=== PATIENT | female | born 1970 | race Caucasian/White ===

== ENCOUNTER 2019-07-31 21:31 | Emergency (ER) | payer OTHER, SELFPAY ==
--- NOTE | ~2019-07-31 | CT_ITS ---
EXAMINATION: CT brain wo con INDICATION: Headache COMPARISON: 02/28/2019 TECHNIQUE: Standard unenhanced head CT. The dose-length product (DLP) was 605.33 mGy-cm. The mA was a djusted according to patient size. Iterative reconstruction technique was employed. FINDINGS: There is no intracranial hemorrhage, acute infarction, or abnormal mass lesion. The ventric les are normal. There is no abnormal mass effect or midline shift. The linder-white matter differentiat ion is normal. The basal cisterns are patent. The orbits are normal. The paranasal sinuses, mastoids and calvarium are normal. IMPRESSION: 1. No acute intracranial abnormality. Reviewed, dictated and finalized at location A.
[2019-07-31 21:33] VITALS: BP 177/113; PULSE 67; RESP 20; TEMP 36.9; O2SAT 100
[2019-07-31 21:50] VITALS: BP 178/118; PULSE 57; RESP 18; TEMP 36.8; O2SAT 100
[2019-07-31 22:38] VITALS: BP 192/117
[2019-07-31 22:47] VITALS: BP 174/111
--- NOTE | 2019-07-31 23:10 | PC.NURSE ---
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 EDP aware of pt BPs. EDP made aware of her concerns as well
[2019-07-31 23:15] VITALS: BP 223/140
[2019-07-31] MEDS: MORPHINE SULFATE 4 MG/ML INJ IV PUSH (23:33)
--- NOTE | 2019-07-31 23:37 | ED.GENADULT ---
HPI - General Adult General Chief complaint: Eye Problems Stated complaint: HIGH BLOOD PRESSURE Time Seen by Provider: 07/31/19 21:45 History of Present Illness HPI narrative: Patient is a 49-year-old female who presents the ER with complaints of headache as well as visual changes. Reports headache is been building up on the right side. Intermittent last couple of days. Denies previous history of headaches. She is very concerned she might have a tumor there as she has history of breast cancer and her cancer antigen markers have been increasing recently. She is due for repeat antigen testing and a PET scan in the near future. But increased her concern this evening is that she noticed that if she was looking upward that the top part of her vision was abnormal on her right eye. She has no eye pain or new flashers or floaters. She reports chronic floaters that she is not concerned about. She has no pain in her eye. Denies pain in her eyelids. Related Data Home Medications Medication Instructions Recorded Confirmed alprazolam 0.25 mg tablet 0.25 mg PO BID 02/16/19 biotin 1 mg capsule 1 mg PO DAILY 02/16/19 qeqebxabkg-ihzgswk-ohzseuwn 50 1 cap PO Q4H PRN 02/16/19 mg-325 mg-40 mg capsule carvedilol 12.5 mg tablet 12.5 mg PO Q12H 02/16/19 cyclobenzaprine 10 mg tablet 10 mg PO .hs tablet 02/16/19 dicyclomine 10 mg capsule 10 mg PO TID 02/16/19 exemestane 25 mg tablet 25 mg PO DAILY 02/16/19 meclizine 25 mg tablet 25 mg PO TID 02/16/19 rivaroxaban 20 mg tablet 20 mg PO DAILY 02/16/19 rivaroxaban [Xarelto] mg 07/31/19 Allergies Allergy/AdvReac Type Severity Reaction Status Date / Time azithromycin Allergy Unknown Unknown Verified 07/31/19 21:46 latex Allergy Unknown Unknown Verified 07/31/19 21:46 nickel Allergy Unknown Unknown Verified 07/31/19 21:46 NEOPRENE Allergy Mild BLACKEN Uncoded 07/31/19 21:46 SKIN Review of Systems Review of Systems: All systems reviewed & are unremarkable except as noted in HPI and below Constitutional: Constitutional: Denies chills, Denies fever(s) and Denies weakness Eyes: Eyes: Reports no additional eye complaints and Reports change in vision ENT: Denies nasal congestion and Denies sore throat Cardiovascular: Cardiovascular: Denies chest pain Gastrointestinal: Gastrointestinal: Denies nausea and Denies vomiting Neurologic: Reports headache(s), Denies numbness and Denies weakness PMFSH Social History Social History Smoking packs per day: 0.5 Smoking cigarettes per day: 10.0 Smoking status: Current every day smoker Second hand tobacco smoke exposure: No Alcohol intake: current Gender identity (if verbalized by the patient): Female Exam Narrative: Exam Narrative: GENERAL: Well-appearing, well-nourished, and in no acute distress. HEAD: Normocephalic, atraumatic. EYES: PERRL and EOMI. Right upper lid is edematous and irritated. Eyelid eversion performed and there is no evidence of hordelum/stye. ENT: Mucous membranes moist. CHEST: Clear to auscultation. No respiratory distress. HEART: Regular rate and rhythm. Normal peripheral pulses. ABDOMEN: Soft, nontender, nondistended. EXTREMITIES: Normal range of motion. No edema. SKIN: Warm, dry, no rash. NEURO: Alert and oriented x3. Course Course Emergency Course: Patient has been very anxious in the ER. She received Ativan which seems to help this a lot. Headache is resolved. Informed of CT results. Discharge home. Vital Signs Vital signs: Vital Signs Temperature 98.4 F 07/31/19 21:33 Pulse Rate 67 07/31/19 21:33 Respiratory Rate 20 07/31/19 21:33 Blood Pressure 177/113 H 07/31/19 21:33 Pulse Oximetry 100 07/31/19 21:33 Temperature 98.2 F 07/31/19 21:50 Pulse Rate 64 08/01/19 01:34 Respiratory Rate 19 08/01/19 01:34 Blood Pressure 172/97 H 08/01/19 01:34 Pulse Oximetry 100 08/01/19 00:48 Medical Decision
[2019-07-31 23:44] VITALS: BP 254/143
--- NOTE | 2019-08-01 00:08 | PC.NURSE ---
When flushing to give ativan, pt reported pain. Some redness in IV site noted. Likely infiltrated. Second RN, confirmed this and is starting another IV. EDP made aware of this.
[2019-08-01] MEDS: LORAZEPAM INJ 2 MG/ML VIAL 1 MG IV PUSH (00:30)
[2019-08-01 00:33] VITALS: BP 194/108; PULSE 60; RESP 23; O2SAT 100
[2019-08-01 00:48] VITALS: BP 193/104; PULSE 64; RESP 16; O2SAT 100
[2019-08-01 01:12] VITALS: BP 175/111
[2019-08-01 01:34] VITALS: BP 172/97; PULSE 64; RESP 19
[2019-08-01 01:46] VITALS: BP 168/106; PULSE 64; RESP 20; O2SAT 99
== END 2019-08-01 02:05 | disposition home or self-care (01) ==
PROVIDERS: Emergency Provider Emergency Medicine; PCP Internal Medicine
DX: R51 Headache (principal); H02.9 Unspecified disorder of eyelid; F17.210 Nicotine dependence, cigarettes, uncomplicated
CPT/HCPCS: 70450; 96374; 99284; J2060; J2270

== ENCOUNTER 2019-08-18 15:02 | Outpatient (CLI) | payer OTHER, SELFPAY ==
--- NOTE | ~2019-08-18 | XR_ITS ---
EXAMINATION: XR elbow LT min 3V EXAM DATE: 08/18/2019 15:44 INDICATION: No known recent injury provided at this time. Pain of the left elbow. Posterior bone. TECHNIQUE: Left elbow frontal, lateral with flexion, and oblique projections obtained and reviewed. There is no prior study for comparison. FINDINGS: Left elbow anterior humeral line intact. There are no acute fractures or dislocations oh ntified. There is no subcutaneous gas. The soft tissue is unremarkable. There are no radiopaque f oreign bodies. The olecranon is unremarkable. IMPRESSION: 1. Unremarkable left elbow exam. Reviewed, dictated and finalized at location A.
== END 2019-08-18 15:03 | disposition home or self-care (01) ==
PROVIDERS: PCP Internal Medicine; Visit Provider Physician Assistant
DX: M25.522 Pain in left elbow (principal)
CPT/HCPCS: 73080

== ENCOUNTER 2019-11-16 14:19 | Outpatient (CLI) | payer OTHER, SELFPAY ==
--- NOTE | ~2019-11-16 | US_ITS ---
EXAMINATION: US carotid duplex BI DATE: 11/16/2019 14:53 INDICATION: Transient cerebral ischemic attack, unspecified. TECHNIQUE: Grayscale, color Doppler, and pulsed Doppler images of the cervical carotid arteries were obtained. The degree of vessel stenosis is placed in one of the following categories: normal, <50%, 5 0-69%, >=70% but less than near-occlusion, near-occlusion, or total occlusion. Note that percent sten osis relative to normal distal artery lumen diameter is indirectly measured from velocity measurement s as described by Artemio, et al. Radiology 2003; 229:340-346. COMPARISON: None. FINDINGS: RIGHT: The right common carotid artery (CCA) peak systolic velocity (PSV) is 67 cm/s. The right internal car otid artery (ICA) PSV is 56 cm/s. The right ICA end-diastolic velocity (EDV) is 21 cm/s. The right IC A/CCA PSV ratio is 0.8. Grayscale and color Doppler images yield an estimate of <50% diameter reducti on from plaque in the ICA. There is antegrade flow in the right vertebral artery. LEFT: The left CCA PSV is 65 cm/s. The left ICA PSV is 65 cm/s. The left ICA EDV is 32 cm/s. The left ICA/C CA PSV ratio is 1.0. Grayscale and color Doppler images yield an estimate of <50% diameter reduction from plaque in the ICA. There is antegrade flow in the left vertebral artery. IMPRESSION: 1. <50% stenosis in the right internal carotid artery. 2. <50% stenosis in the left internal carotid artery. Reviewed, dictated and finalized at location A.
== END 2019-11-16 14:20 | disposition home or self-care (01) ==
PROVIDERS: PCP Internal Medicine; Visit Provider Physician Assistant
DX: I65.23 Occlusion and stenosis of bilateral carotid arteries (principal)
CPT/HCPCS: 93880

== ENCOUNTER 2019-12-25 18:18 | Emergency (ER) | payer OTHER, SELFPAY ==
[2019-12-25 18:33] VITALS: BP 145/95; PULSE 62; RESP 20; TEMP 36.2; O2SAT 100
--- NOTE | 2019-12-25 18:37 | ECG_ITS ---
Measurements Intervals [place] Rate: 53 P: 40 [place]: 172 QRS: 12 QRSD: 98 T: 70 QT: 453 QTc: 428 Interpretive Statements SINUS BRADYCARDIA BORDERLINE ECG Electronically Signed On 12-26-2019 7:02:11 CDT by Roger Wang D.O.
[2019-12-25 18:54] LABS: Basophils Absolute Auto 0.1 K/mm3 (0.0-0.1); Basophils Percent Auto 0.5 % (0.2-1.2); Eosinophils Absolute Auto 0.3 K/mm3 (0-0.3); Eosinophils Percent Auto 2.7 % (0-4.4); Hematocrit 36.2 % (37.0-47.0); Hemoglobin 11.7 g/dL (12.0-15.0); Immature Granulocyte Absolute 0.04 K/mm3 (0.00-0.031); Immature Granulocyte Percent A 0.4 % (0-0.5); Lymphocytes Absolute Auto 4.59 K/mm3 (0.9-3.2); Lymphocytes Percent Auto 40.3 % (18.3-44.2); Mean Corpuscular HGB Conc 32.3 g/dl (32-36); Mean Corpuscular Hemoglobin 29.4 pg (26-34); Mean Platelet Volume 11.6 fl (7.4-10.4); Monocytes Absolute Auto 0.7 K/mm3 (0.1-0.6); Monocytes Percent Auto 5.9 % (2.6-8.5); Neutrophils Absolute Auto 5.7 K/mm3 (1.3-6.7); Neutrophils Percent Auto 50.2 % (45.5-73.1); Platelet Count Result 257 k/mm3 (150-375); Red Blood Count 3.98 M/mm3 (4.2-5.4); Red Cell Distribution Width 13.6 % (11.5-14.5); White Blood Count 11.4 K/mm3 (4.5-10.0)
[2019-12-25 19:02] VITALS: PULSE 61
[2019-12-25 19:04] LABS: Alanine Aminotransferase 17 U/L (4-35); Albumin Level 4.2 g/dL (3.5-5.1); Alkaline Phosphatase 103 U/L (38-126); Anion Gap 9 mmol/L (8-16); Aspartate Amino Transferase 19 U/L (14-36); Bilirubin,Total 0.3 mg/dL (0.2-1.3); Blood Urea Nitrogen 18 mg/dL (7-17); Calcium 9.3 mg/dL (8.4-10.2); Carbon Dioxide 25 mmol/L (22-30); Chloride 110 mmol/L (98-107); Estimated Glomerular Filt Rate > 60; Glucose 92 mg/dL (65-105); Potassium 3.6 mmol/L (3.4-5.0); Sodium 144 mmol/L (137-145)
--- NOTE | 2019-12-25 19:24 | ED.GENADULT ---
HPI - General Adult General Chief complaint: Unspecified Stated complaint: blood pressure issues Time Seen by Provider: 12/25/19 19:24 History of Present Illness HPI narrative: 49 yo female presents from home for low blood pressure. She reports that she was at home when she developed a strnge feeling in her head like she is high on morphine she also said that she had a funny feeling in her chest. She checked her blood pressure and it was in the 90s systolic. She reports that she had a previous TIA due to low blood pressure and they told her not to let her systolic BP get below 120. Since arriving here her blood systolic BPO has not gotten below 125. Related Data Home Medications Medication Instructions Recorded Confirmed carvedilol 12.5 mg tablet 12.5 mg PO DAILY tablet 08/18/19 12/13/19 biotin 1 mg capsule 1 mg PO DAILY 10/04/19 12/13/19 cyclobenzaprine 10 mg tablet 10 mg PO .hs tablet 10/04/19 12/13/19 dicyclomine 10 mg capsule 10 mg PO TID 10/04/19 11/11/19 meloxicam 15 mg tablet 15 mg PO DAILY 10/04/19 12/13/19 Allergies Allergy/AdvReac Type Severity Reaction Status Date / Time azithromycin Allergy Unknown stomach Verified 12/13/19 15:52 pain latex Allergy Unknown blisters Verified 12/13/19 15:52 nickel Allergy Unknown Turns skin Verified 12/13/19 15:52 Green NEOPRENE Allergy Mild BLACKEN Uncoded 12/13/19 15:52 SKIN Review of Systems Review of Systems: All systems reviewed & are unremarkable except as noted in HPI and below Constitutional: Constitutional: Denies fever(s) Eyes: Eyes: Denies loss of vision Cardiovascular: Cardiovascular: Denies chest pain Respiratory: Respiratory: Denies dyspnea Gastrointestinal: Gastrointestinal: Reports nausea Musculoskeletal: Musculoskeletal: Denies back pain Neurologic: Reports dizziness, Denies syncope, Denies headache(s), Denies focal weakness and Denies weakness [facility] Past Medical History Medical History (Updated 12/26/19 @ 00:00 by Background Daemon) Anemia Anxiety Arthritis Back pain Bilateral renal cysts Breast cancer, right Bronchitis Depression Dizziness Ear infection GERD (gastroesophageal reflux disease) Hiatal hernia High cholesterol History of blood transfusion History of chemotherapy History of sinus problem HTN (hypertension) Hx of radiation therapy Hyperlipidemia IBS (irritable bowel syndrome) Peptic ulcer Pleurisy Pulmonary embolism Shingles Vasovagal episode Vertigo Vision abnormalities Wears glasses for reading Surgical History Surgical History H/O abdominoplasty H/O bilateral mastectomy H/O right knee surgery per patient, had remodeled H/O tubal ligation H/O: hysterectomy History of ankle surgery left ankle reconstruction History of appendectomy History of carpal tunnel repair History of rhinoplasty History of tonsillectomy Hx of cholecystectomy Previous back surgery T10 filled with concrete Family History Family History Father Hypertension Mother Cerebrovascular accident Patient's mother is Other Arthritis Social History Social History Smoking packs per day: 0.5 Smoking cigarettes per day: 10.0 Years smoked: 35 Smoking pack-years: 17.50 Smoking status: Former smoker Second hand tobacco smoke exposure: No Smoking end date: 11/08/19 Alcohol intake: current Substance use: current Substance use type: marijuana Gender identity (if verbalized by the patient): Female Exam Const: General: healthy appearing, no acute distress and alert Orientation/consciousness: patient oriented x3 HENMT: Head: normal to inspection Eyes: Alignment and Position: alignment normal and position normal Periorbital: periorbital findings normal Eyelids: eyelids normal Pupils: Equal, round and
[2019-12-25 19:52] VITALS: BP 145/92; PULSE 55; RESP 13; O2SAT 100
[2019-12-25 20:45] VITALS: BP 131/87; BP 134/96; BP 134/97; PULSE 57; PULSE 62; PULSE 68
[2019-12-25 21:16] VITALS: BP 134/90; PULSE 69; RESP 12; O2SAT 100
== END 2019-12-25 21:18 | disposition home or self-care (01) ==
PROVIDERS: Emergency Medicine; Emergency Provider Emergency Medicine; PCP Internal Medicine
DX: R55 Syncope and collapse (principal); E78.5 Hyperlipidemia, unspecified; D64.9 Anemia, unspecified; I10 Essential (primary) hypertension; M19.90 Unspecified osteoarthritis, unspecified site; K58.9 Irritable bowel syndrome, unspecified; K21.9 Gastro-esophageal reflux disease without esophagitis; Z85.3 Personal history of malignant neoplasm of breast; Z86.711 Personal history of pulmonary embolism; Z92.21 Personal history of antineoplastic chemotherapy; Z92.3 Personal history of irradiation; Z90.13 Acquired absence of bilateral breasts and nipples; Z87.891 Personal history of nicotine dependence; F41.9 Anxiety disorder, unspecified; F32.9 Major depressive disorder, single episode, unspecified; R00.1 Bradycardia, unspecified
CPT/HCPCS: 36415; 80053; 85025; 93005; 99283

== ENCOUNTER 2020-02-09 20:28 | Emergency (ER) | payer OTHER, SELFPAY ==
--- NOTE | ~2020-02-09 | XR_ITS ---
EXAMINATION: XR chest 1V portable DATE: 02/09/2020 21:41 INDICATION: Weakness and back pain radiating to the neck TECHNIQUE: frontal view of the chest was obtained. COMPARISON: Chest radiograph dated 03/24/2019 FINDINGS: Unchanged minimal atelectasis/scarring at the left lung base. No new airspace opacities, pulmonary ed tiffany, pleural effusion or pneumothorax. The cardiomediastinal silhouette is normal. Bilateral breast i mplants. Several surgical clips project over the right chest and right axilla. IMPRESSION: 1. No acute cardiopulmonary disease. Reviewed, dictated and finalized at location H. SITE PROJECT MANAGER
[2020-02-09 20:43] VITALS: BP 131/87; PULSE 73; RESP 17; TEMP 35.9; O2SAT 100
--- NOTE | 2020-02-09 21:02 | PC.NURSE ---
DURING TRIAGE PT STATES THAT SHE HAS TESTED + FOR AN UNKNOWN AUTOIMMUNE DISEASE THIS WEEK. PT SHOWS THIS TRIAGE NURSE HER RECENT LAB RESULTS FOLLOWS: UNRULY + UNRULY TITER = 1:80 TITER UNRULY PATTERN = HOMOGENEOUS UNRULY TITER 2 = 1:640 UNRULY PATTERN 2 = NUCLEOLAR PT STATES IN TRIAGE THAT HER DOCTORS AT [facility] GAVE HER AN EMERGENT UPCOMING APPT WITH A TITLE I TEACHER NEXT WEEK.
[2020-02-09 21:05] VITALS: PULSE 66; RESP 12; O2SAT 95
[2020-02-09 21:08] VITALS: BP 143/94; PULSE 62; RESP 12
--- NOTE | 2020-02-09 21:10 | PC.NURSE ---
patient brought back to ED room 2 with c/o dizziness and lightheadedness. see triage notes. patient states this is chronic. states she has been seen at this ER numerous times . patient states all work ups here have been inclusive. has been seen mostly at [facility] in [place] for same. has seen cardiology and neurology and many other specialists . patient states that she is very complicated. has appointment with rheumatology on Friday for same symptoms and issues. no change in symptoms or condition. unclear on why patient presents to ED today. states they may have a diagnosis soon. has been advised she has an autoimmune disorder but not sure of clear diagnosis yet.
--- NOTE | 2020-02-09 21:28 | ECG_ITS ---
Measurements Intervals [place] Rate: 59 P: 75 [place]: 171 QRS: 13 QRSD: 109 T: 63 QT: 421 QTc: 418 Interpretive Statements SINUS BRADYCARDIA BASELINE WANDER- I, II, AVR, AVL,A VF BORDERLINE ECG Electronically Signed On 02-10-2020 8:47:46 BEACH ATTENDANT by Roger Wang D.O.
[2020-02-09] MEDS: SODIUM CHLORIDE 0.9% IV 1,000 ML 999 ML IV CONT (21:44)
[2020-02-09 21:51] LABS: Basophils Absolute Auto 0.1 K/mm3 (0.0-0.1); Basophils Percent Auto 0.6 % (0.2-1.2); Eosinophils Absolute Auto 0.3 K/mm3 (0-0.3); Eosinophils Percent Auto 2.2 % (0-4.4); Hematocrit 38.9 % (37.0-47.0); Hemoglobin 12.8 g/dL (12.0-15.0); Immature Granulocyte Absolute 0.03 K/mm3 (0.00-0.031); Immature Granulocyte Percent A 0.2 % (0-0.5); Lymphocytes Absolute Auto 5.32 K/mm3 (0.9-3.2); Lymphocytes Percent Auto 43.1 % (18.3-44.2); Mean Corpuscular HGB Conc 32.9 g/dl (32-36); Mean Corpuscular Hemoglobin 29.8 pg (26-34); Mean Corpuscular Volume 90.5 fl (80-100); Mean Platelet Volume 11.6 fl (7.4-10.4); Monocytes Absolute Auto 0.8 K/mm3 (0.1-0.6); Monocytes Percent Auto 6.6 % (2.6-8.5); Neutrophils Absolute Auto 5.8 K/mm3 (1.3-6.7); Neutrophils Percent Auto 47.3 % (45.5-73.1); Platelet Count Result 279 k/mm3 (150-375); Red Cell Distribution Width 13.7 % (11.5-14.5); White Blood Count 12.4 K/mm3 (4.5-10.0)
[2020-02-09 22:01] VITALS: BP 144/112; BP 145/94; PULSE 59; PULSE 65
[2020-02-09 22:03] VITALS: BP 149/94; PULSE 66
[2020-02-09 22:03] LABS: Alanine Aminotransferase 22 U/L (4-35); Albumin Level 4.8 g/dL (3.5-5.1); Alkaline Phosphatase 117 U/L (38-126); Anion Gap 11 mmol/L (8-16); Aspartate Amino Transferase 27 U/L (14-36); Bilirubin,Total 0.4 mg/dL (0.2-1.3); Blood Urea Nitrogen 19 mg/dL (7-17); Calcium 9.6 mg/dL (8.4-10.2); Carbon Dioxide 27 mmol/L (22-30); Chloride 106 mmol/L (98-107); Estimated CRCL calculation 107 ml/min; Estimated Glomerular Filt Rate > 60; Glucose 97 mg/dL (65-105); Lactic Acid Reflex 0.8 mmol/L (0.7-2.1); Potassium 3.4 mmol/L (3.4-5.0); Sodium 144 mmol/L (137-145)
--- NOTE | 2020-02-09 22:09 | PC.NURSE ---
orthostatic vitals done by counter intelligence technician and charted. no change.
--- NOTE | 2020-02-09 22:19 | PC.NURSE ---
report given to Kendrick WEN.
--- NOTE | 2020-02-09 22:25 | ED.GENADULT ---
HPI - General Adult General Chief complaint: Dizziness Stated complaint: low blood pressure, weak Time Seen by Provider: 02/09/20 21:20 History of Present Illness HPI narrative: Patient is a 49-year-old female presents to the emergency department with chief complaint of generalized weakness. The patient states that she noticed that her blood pressure was below 120 states that she has had prior history of strokes and felt as though she was lightheaded and felt as though she was headed toward an episode where her blood pressure was going to be running very low. Patient denies chest pain states she does have pain in her upper back denies fever denies chills patient denies vomiting denies diarrhea. Patient states that she is seen multiple specialist and has not had a final definitive diagnosis but has had recent diagnosis of an autoimmune disorder that is being worked up. Related Data Home Medications Medication Instructions Recorded Confirmed carvedilol 12.5 mg tablet 12.5 mg PO DAILY tablet 08/18/19 02/04/20 biotin 1 mg capsule 1 mg PO DAILY 10/04/19 02/04/20 cyclobenzaprine 10 mg tablet 10 mg PO .hs tablet 10/04/19 02/04/20 dicyclomine 10 mg capsule 10 mg PO TID 10/04/19 02/04/20 meloxicam 15 mg tablet 15 mg PO DAILY 10/04/19 02/04/20 Allergies Allergy/AdvReac Type Severity Reaction Status Date / Time azithromycin Allergy Unknown stomach Verified 02/09/20 20:53 pain latex Allergy Unknown blisters Verified 02/09/20 20:53 nickel Allergy Unknown Turns skin Verified 02/09/20 20:53 Green NEOPRENE Allergy Mild BLACKEN Uncoded 02/09/20 20:53 SKIN Review of Systems Review of Systems: Narrative: CONSTITUTIONAL: Denies fever, chills, or sweats. EYES: Denies visual changes, redness, or discharge. ENT: Denies rhinorrhea, congestion, sore throat, or otalgia. CARDIOVASCULAR: Denies chest pain, palpitations, or edema. RESPIRATORY: Denies cough or dyspnea. GASTROINTESTINAL: Denies abdominal pain, nausea, vomiting, or diarrhea. GENITOURINARY: Denies dysuria or hematuria. SKIN: Denies rash or itching. MUSCULOSKELETAL: Denies back pain, joint pain, or myalgia. NEUROLOGIC: Denies headache, numbness, or weakness. PSYCHIATRIC: Denies anxiety or depression. A 10 system review of systems was completed on the patient and is negative except for what is stated in the HPI. Nursing and ancillary documentation was reviewed. [facility] Past Medical History Medical History UNRULY positive Anemia Anxiety Arthritis Back pain Bilateral renal cysts Breast cancer, right Bronchitis Depression Dizziness Ear infection GERD (gastroesophageal reflux disease) Hiatal hernia High cholesterol History of blood transfusion History of chemotherapy History of sinus problem HTN (hypertension) Hx of radiation therapy Hyperlipidemia IBS (irritable bowel syndrome) Peptic ulcer Pleurisy Pulmonary embolism Shingles Vasovagal episode Vertigo Vision abnormalities Wears glasses for reading Surgical History Surgical History H/O abdominoplasty H/O bilateral mastectomy H/O right knee surgery per patient, had remodeled H/O tubal ligation H/O: hysterectomy History of ankle surgery left ankle reconstruction History of appendectomy History of carpal tunnel repair History of rhinoplasty History of tonsillectomy Hx of cholecystectomy Previous back surgery T10 filled with concrete Family History Family History Father Hypertension Mother Cerebrovascular accident Patient's mother is Other Arthritis Social History Social History Smoking packs per day: 0.5 Smoking cigarettes per day: 10.0 Years smoked: 35 Smoking pack-years: 17.50 Smoking status: Former smoker To
[2020-02-09 23:16] LABS: Add Urine Microscopic? NO; Appearance Urine Clear (Clear); Bacteria Urine Trace /hpf; Bilirubin Urine Negative (Negative); Blood Urine Negative (Negative); Color Urine Yellow (Yellow); Glucose Urine UA Negative (Negative); Ketones Urine Negative (Negative); Leukocyte Esterase Ur Negative LEU/UL (Negative); Mucus Urine Rare /lpf; Nitrate Urine Negative (Negative); Protein Urine Negative (Negative); RBC Urine 0-2 /hpf (0-2); Specific Grav Ur 1.012 (1.001-1.035); Squamous Epithelial Cell Urine Many /hpf (Few); Urobilinogen Urine Negative mg/dL (<2.0); WBC Urine 0-3 /hpf
[2020-02-09 23:26] VITALS: BP 127/83; PULSE 64; RESP 18; O2SAT 95
[2020-02-10 00:25] VITALS: BP 143/81; PULSE 54; RESP 18; O2SAT 98
== END 2020-02-10 00:28 | disposition home or self-care (01) ==
PROVIDERS: Emergency Provider Emergency Medicine; PCP Internal Medicine
DX: R53.1 Weakness (principal); D89.89 Other specified disorders involving the immune mechanism, not elsewhere classified; M19.90 Unspecified osteoarthritis, unspecified site; K21.9 Gastro-esophageal reflux disease without esophagitis; I10 Essential (primary) hypertension; K58.9 Irritable bowel syndrome, unspecified; E78.5 Hyperlipidemia, unspecified; Z86.2 Personal history of diseases of the blood and blood-forming organs and certain disorders involving the immune mechanism; Z87.11 Personal history of peptic ulcer disease; Z86.711 Personal history of pulmonary embolism; Z85.3 Personal history of malignant neoplasm of breast; Z92.3 Personal history of irradiation; Z92.21 Personal history of antineoplastic chemotherapy; Z90.13 Acquired absence of bilateral breasts and nipples; Z87.891 Personal history of nicotine dependence
CPT/HCPCS: 36415; 71045; 80053; 81003; 83605; 83735; 85025; 93005; 96360; 99284; J7030

== ENCOUNTER 2020-05-15 15:36 | Outpatient (CLI) | payer OTHER, SELFPAY ==
--- NOTE | ~2020-05-15 | XR_ITS ---
EXAMINATION: XR shoulder LT min 2V INDICATION: Left shoulder pain TECHNIQUE: Four views of the left shoulder are submitted. COMPARISON: None FINDINGS: Normal alignment. No fracture. Glenohumeral and acromioclavicular joint spaces are normal. Surgical clips are noted in the axilla. IMPRESSION: 1. No acute osseous abnormality. Reviewed, dictated and finalized at location A. ESS BRUSHER
== END 2020-05-15 15:37 | disposition home or self-care (01) ==
LOC: ANHIMG 15:43
PROVIDERS: PCP Internal Medicine; Visit Provider Physician Assistant
DX: M25.512 Pain in left shoulder (principal)
CPT/HCPCS: 73030

== ENCOUNTER 2020-05-24 14:50 | Outpatient (CLI) | payer OTHER, SELFPAY | END 2020-05-24 14:51 | disposition home or self-care (01) | LOC: ANHCOVIDVC 14:50 | PROVIDERS: PCP Internal Medicine | DX: Z23 Encounter for immunization (principal) | CPT/HCPCS: 0001A; 91300 ==

== ENCOUNTER 2020-06-14 14:48 | Outpatient (CLI) | payer OTHER, SELFPAY | END 2020-06-14 14:49 | disposition home or self-care (01) | LOC: ANHCOVIDVC 14:48 | PROVIDERS: PCP Internal Medicine | DX: Z23 Encounter for immunization (principal) | CPT/HCPCS: 0002A; 91300 ==

== ENCOUNTER 2020-09-13 10:21 | Emergency (ER) | payer OTHER, SELFPAY ==
[2020-09-13] VITALS (25 sets, daily range): BP systolic 134–1545; BP diastolic 85–104; PULSE 51–75; RESP 10–18; TEMP 36.3; O2SAT 93–100
--- NOTE | ~2020-09-13 | XR_ITS ---
EXAMINATION: XR chest 1V DATE: 09/13/2020 10:44 INDICATION: Stroke TECHNIQUE: PA and lateral views of the chest were obtained. COMPARISON: Chest radiograph dated 02/09/2020 FINDINGS: Significant change in mild streaky opacities at the left lung base and favor atelectasis/scarring ove r pneumonia. No other airspace opacities, pulmonary edema, pleural effusion or pneumothorax. The card iomediastinal silhouette is normal. Multiple surgical clips projecting over the right breast and axil la. Bilateral breast implants. Cholecystectomy clips in right upper quadrant. IMPRESSION: 1. Unchanged mild left basilar atelectasis/scarring. No acute cardiopulmonary disease. Reviewed, dictated and finalized at location A. IMPRESSION: 1. Unchanged mild left basilar atelectasis/scarring. No acute cardiopulmonary d isease.
--- NOTE | ~2020-09-13 | CT_ITS ---
EXAMINATION: CT brain wo con DATE: 09/13/2020 10:39 INDICATION: Right-sided visual loss for 1 minute. TECHNIQUE: Computed tomography (CT) of the head was performed without intravenous contrast. The mA wa s adjusted according to patient size. Iterative reconstruction technique was employed. The dose-lengt h product was 605.33 mGy-cm. COMPARISON: Head CT 07/31/2019, brain MRI 02/10/2018 FINDINGS: There is no intracranial hemorrhage, acute infarction, or abnormal intracranial mass lesion . The ventricles are normal in size. The orbits are normal. There is mild mucosal thickening in the p aranasal sinuses. The mastoid air cells are normal. IMPRESSION: 1. Normal brain. Reviewed, dictated and finalized at location A. IMPRESSION: 1. Normal brain.
--- NOTE | ~2020-09-13 | CT_ITS ---
EXAMINATION: CTA brain carotid DATE: 09/13/2020 12:20 INDICATION: Right eye visual loss. TECHNIQUE: Computed tomographic angiography (CTA) of the head was performed with 100 mL Omnipaque-350 intravenous contrast. CTA of the neck was performed with intravenous contrast. Automated exposure co ntrol and iterative reconstruction technique were employed. The dose-length product was 1229.14 mGy-c m. Maximum intensity projection and volume rendered 3D-reconstructions were created by the technTHEMAi st on a separate workstation. COMPARISON: Head CT 09/13/2020 FINDINGS: HEAD CTA: There is no intracranial hemorrhage, acute infarction, or abnormal intracranial mass lesion . The ventricles are normal in size. The orbits are normal. The mastoid air cells are normal. There i s mild mucosal thickening in the paranasal sinuses. The vertebral arteries are codominant. There is n o significant stenosis of basilar artery or the posterior cerebral arteries. There is no significant stenosis of the intracranial internal carotid arteries or anterior or middle cerebral arteries. Anter ior communicating artery is normal. The posterior communicating arteries are normal. There is no aneu rysm. NECK CTA: There are bilateral breast implants. There is mild emphysema. There is mild scarring at the lung apices. There are no pathologically enlarged lymph nodes. There is a 13 mm nodule in left thyro id lobe, likely not clinically significant. There is no significant stenosis of the vertebral arterie s. There is mild plaque in the proximal internal carotid arteries. There is 0% stenosis of the proxim al right internal carotid artery relative to normal distal artery lumen diameter (NASCET criteria). T here is 0% stenosis of the proximal left internal carotid artery relative to normal distal artery lum en diameter. There is mild cervical spondylosis. IMPRESSION: 1. Normal brain. No aneurysm or significant intracranial internal stenosis. 2. 0% stenosis of the proximal internal carotid arteries relative to normal distal artery lumen diam eters (NASCET criteria). Reviewed, dictated and finalized at location A. IMPRESSION: 1. Normal brain. No aneurysm or significant intracranial internal stenosis. 2. 0% stenosis of the proximal internal carotid arteries relative to normal di stal artery lumen diameters (NASCET criteria).
--- NOTE | 2020-09-13 10:25 | ECG_ITS ---
Measurements Intervals [place] Rate: 51 P: 27 CT: 170 QRS: -3 QRSD: 109 T: 61 QT: 494 QTc: 458 Interpretive Statements SINUS BRADYCARDIA BASELINE ARTIFACT- II, III, AVR, AVF, V1, V3-V6 BORDERLINE ECG Electronically Signed On 09-13-2020 12:10:16 CDT by Roger Wang D.O.
[2020-09-13 11:25] LABS: Basophils Absolute Auto 0.1 K/mm3 (0.0-0.1); Basophils Percent Auto 0.6 % (0.2-1.2); Eosinophils Absolute Auto 0.2 K/mm3 (0-0.3); Eosinophils Percent Auto 2.1 % (0-4.4); Hematocrit 38.1 % (37.0-47.0); Hemoglobin 12.3 g/dL (12.0-15.0); Immature Granulocyte Absolute 0.01 K/mm3 (0.00-0.031); Immature Granulocyte Percent A 0.1 % (0-0.5); Lymphocytes Absolute Auto 2.93 K/mm3 (0.9-3.2); Lymphocytes Percent Auto 35.5 % (18.3-44.2); Mean Corpuscular HGB Conc 32.3 g/dl (32-36); Mean Corpuscular Hemoglobin 29.7 pg (26-34); Mean Platelet Volume 10.8 fl (7.4-10.4); Monocytes Absolute Auto 0.5 K/mm3 (0.1-0.6); Monocytes Percent Auto 6.1 % (2.6-8.5); Neutrophils Absolute Auto 4.6 K/mm3 (1.3-6.7); Neutrophils Percent Auto 55.6 % (45.5-73.1); Platelet Count Result 237 k/mm3 (150-375); Red Blood Count 4.14 M/mm3 (4.2-5.4); Red Cell Distribution Width 13.3 % (11.5-14.5); White Blood Count 8.3 K/mm3 (4.5-10.0)
[2020-09-13 11:49] LABS: Anion Gap 11 mmol/L (8-16); Blood Urea Nitrogen 14 mg/dL (7-17); Calcium 9.9 mg/dL (8.4-10.2); Carbon Dioxide 25 mmol/L (22-30); Chloride 108 mmol/L (98-107); Estimated CRCL calculation 93 ml/min; Estimated Glomerular Filt Rate > 60; Glucose 91 mg/dL (65-105); Potassium 3.5 mmol/L (3.4-5.0); Sodium 144 mmol/L (137-145)
[2020-09-13 11:52] LABS: Glucose Point of Care 92 mg/dl (65-105)
[2020-09-13 11:53] LABS: INR 1.6; Prothrombin Time 19.5 Seconds (11.1-14.7)
[2020-09-13 11:54] LABS: Partial Thromboplastin Time 40.5 SECONDS (22.3-36.8)
--- NOTE | 2020-09-13 11:58 | PC.NURSE ---
Pt taken to CT scan
[2020-09-13 12:00] LABS: Troponin I < 0.012 ng/mL (0.000-0.034)
--- NOTE | 2020-09-13 14:08 | ED.NEUROSD ---
HPI - Neuro Symptoms/Deficit General Chief Complaint: Suspected CVA Stated Complaint: R eye vision loss (LKW 15 min ago), hx TIA Time Seen by Provider: 09/13/20 11:09 History of Present Illness HPI Narrative: Patient is a 50-year-old female who presents ER for concern for TIA. Reports she was at her computer when she had loss of vision in the central part of her right eye. She reports she is trying to read something and where the words were supposed to be it was white. Similar when she looked out towards wall. Symptoms lasted for less than a minute. No arm weakness or facial droop or slurred speech. She is on Xarelto due to the fact that she has lupus antiphospholipid antibody. Patient also has some brief tingling in her left arm apparently upon arrival to the ER. On my exam all symptoms are resolved. Patient has had similar short interval episodes in the past without formal diagnosis of CVA. She had normal MRI in the past and unremarkable imaging of the brain and neck. Related Data Home Medications Medication Instructions Recorded Confirmed carvedilol 12.5 mg tablet 12.5 mg PO DAILY tablet 08/18/19 06/09/20 biotin 1 mg capsule 1 mg PO DAILY 10/04/19 06/09/20 cyclobenzaprine 10 mg tablet 10 mg PO .hs tablet 10/04/19 06/09/20 dicyclomine 10 mg capsule 10 mg PO TID 10/04/19 06/09/20 meloxicam 15 mg tablet 15 mg PO DAILY 10/04/19 06/09/20 hydroxychloroquine 200 mg tablet 400 mg PO DAILY tablet 05/15/20 06/09/20 Allergies Allergy/AdvReac Type Severity Reaction Status Date / Time azithromycin Allergy Unknown stomach Verified 09/13/20 11:33 pain latex Allergy Unknown blisters Verified 09/13/20 11:33 nickel Allergy Unknown Turns skin Verified 09/13/20 11:33 Green NEOPRENE Allergy Mild BLACKEN Uncoded 09/13/20 11:33 SKIN Review of Systems Review of Systems: All systems reviewed & are unremarkable except as noted in HPI and below Eyes: Eyes: Denies change in vision, Denies diplopia and Reports loss of vision Cardiovascular: Cardiovascular: Denies chest pain and Denies palpitations Gastrointestinal: Gastrointestinal: Denies abdominal pain, Denies diarrhea, Denies nausea and Denies vomiting Neurologic: Denies dizziness, Denies syncope, Denies focal weakness, Denies memory loss and Reports Other visual disturbances [facility] Past Medical History Medical History UNRULY positive Anemia Anxiety Arthritis Back pain Bilateral renal cysts Breast cancer, right Bronchitis Depression Dizziness Ear infection GERD (gastroesophageal reflux disease) Hiatal hernia High cholesterol History of blood transfusion History of chemotherapy History of sinus problem HTN (hypertension) Hx of radiation therapy Hyperlipidemia IBS (irritable bowel syndrome) Lupus Lupus anticoagulant positive Peptic ulcer Pleurisy Pulmonary embolism Shingles Vasovagal episode Vertigo Vision abnormalities Wears glasses for reading Surgical History Surgical History H/O abdominoplasty H/O bilateral mastectomy H/O right knee surgery per patient, had remodeled H/O tubal ligation H/O: hysterectomy History of ankle surgery left ankle reconstruction History of appendectomy History of carpal tunnel repair History of rhinoplasty History of tonsillectomy Hx of cholecystectomy Previous back surgery T10 filled with concrete Family History Family History Father Hypertension Mother Cerebrovascular accident Patient's mother is Other Arthritis Social History Social History Smoking packs per day: 0.5 Smoking cigarettes per day: 10.0 Years smoked: 35 Smoking pack-years: 17.50 Smoking status: Former smoker Tobacco type: e-cigarettes/vaping Second hand tobacco smoke exposure:
== END 2020-09-13 15:27 | disposition home or self-care (01) ==
PROVIDERS: Emergency Provider Emergency Medicine; PCP Internal Medicine
DX: H53.8 Other visual disturbances (principal); E78.00 Pure hypercholesterolemia, unspecified; F32.9 Major depressive disorder, single episode, unspecified; F41.9 Anxiety disorder, unspecified; K21.9 Gastro-esophageal reflux disease without esophagitis; K58.9 Irritable bowel syndrome, unspecified; M19.90 Unspecified osteoarthritis, unspecified site; R76.0 Raised antibody titer; Z85.3 Personal history of malignant neoplasm of breast; Z92.21 Personal history of antineoplastic chemotherapy; Z92.3 Personal history of irradiation; Z90.13 Acquired absence of bilateral breasts and nipples; Z86.711 Personal history of pulmonary embolism; Z79.01 Long term (current) use of anticoagulants; Z87.891 Personal history of nicotine dependence; R00.1 Bradycardia, unspecified
CPT/HCPCS: 36415; 70450; 70496; 70498; 71045; 80048; 82948; 84484; 85025; 85610; 85730; 93005; 99284; Q9967

== ENCOUNTER → 2020-10-14 07:27 | Outpatient (CLI) | payer OTHER, SELFPAY ==
--- NOTE | ~2020-10-14 | XR_ITS ---
EXAMINATION: XR thoracic spine 2V DATE: 10/14/2020 07:57 INDICATION: Mid back pain TECHNIQUE: AP, lateral and lateral swimmer's views of the thoracic spine were obtained. COMPARISON: MRI, 11/17/2016 FINDINGS: There are vertebroplasty changes at T10. The vertebral body heights are otherwise normal. A small amount of methylmethacrylate is seen in a paraspinal vein. There is no acute fracture. There i s mild loss of intervertebral disc space height in the lower thoracic spine. IMPRESSION: 1. Mild thoracic spondylosis and interval vertebroplasty change at T10 without acute findings. Reviewed, dictated and finalized at location A.
--- NOTE | ~2020-10-14 | XR_ITS ---
EXAMINATION: XR lumbar spine 2-3V DATE: 10/14/2020 07:57 INDICATION: Low back pain TECHNIQUE: Anteroposterior and lateral views of the lumbar spine, and cone-down lateral view of the l umbosacral junction were obtained. COMPARISON: None. FINDINGS: The vertebral body heights and alignment are normal. There is mild loss of intervertebral d isc space height at L5-S1. Small degenerative osteophytes project from the anterior endplates of mult iple vertebral bodies. Calcified atherosclerosis is noted. There is mild facet osteoarthritis in lowe r lumbar spine. Cholecystectomy clips are noted in the right upper quadrant. IMPRESSION: 1. Mild lumbar spondylosis without acute findings or significant interval change. Reviewed, dictated and finalized at location A. IMPRESSION: 1. Mild lumbar spondylosis without acute findings or significant interval marcos nolan
== END ==
DX: M54.5 Low back pain (principal); M47.816 Spondylosis without myelopathy or radiculopathy, lumbar region; M47.814 Spondylosis without myelopathy or radiculopathy, thoracic region; Z98.890 Other specified postprocedural states
CPT/HCPCS: 72070; 72100

== ENCOUNTER 2020-11-20 09:00 | Emergency (ER) | payer OTHER, SELFPAY ==
[2020-11-20 09:15] VITALS: BP 161/110; PULSE 68; RESP 20; TEMP 37.2; O2SAT 100
--- NOTE | 2020-11-20 10:09 | ED.UPPEXIN ---
HPI - Extremity Injury (Upper) General Chief Complaint: Extremity Injury, Upper Stated Complaint: insect sting Time Seen by Provider: 11/20/20 10:00 Source: patient Mode of arrival: ambulatory Limitations: no limitations History of Present Illness HPI narrative: This is a 50-year-old female that presents to the emergency department for an insect bite/sting to the right fourth finger sustained just prior to arrival. Reports she was out in the garden and felt something sting or bite her. Reports redness and swelling to the finger. Reports this caused her to be unable to remove her ring which prompted her to be seen today. Denies decreased range of motion or numbness. Related Data Home Medications Medication Instructions Recorded Confirmed carvedilol 12.5 mg tablet 12.5 mg PO DAILY tablet 08/18/19 06/09/20 biotin 1 mg capsule 1 mg PO DAILY 10/04/19 06/09/20 cyclobenzaprine 10 mg tablet 10 mg PO .hs tablet 10/04/19 06/09/20 dicyclomine 10 mg capsule 10 mg PO TID 10/04/19 06/09/20 meloxicam 15 mg tablet 15 mg PO DAILY 10/04/19 06/09/20 hydroxychloroquine 200 mg tablet 400 mg PO DAILY tablet 05/15/20 06/09/20 Allergies Allergy/AdvReac Type Severity Reaction Status Date / Time azithromycin Allergy Unknown stomach Verified 11/20/20 09:17 pain latex Allergy Unknown blisters Verified 11/20/20 09:17 nickel Allergy Unknown Turns skin Verified 11/20/20 09:17 Green NEOPRENE Allergy Mild BLACKEN Uncoded 09/13/20 11:33 SKIN Review of Systems Review of Systems: CONSTITUTIONAL: Denies fever SKIN: Reports redness MUSCULOSKELETAL: Denies joint pain, or myalgia. NEUROLOGIC: Denies numbness All systems reviewed & are unremarkable except as noted in HPI and below PMFSH Past Medical History Medical History UNRULY positive Anemia Anxiety Arthritis Back pain Bilateral renal cysts Breast cancer, right Bronchitis Depression Dizziness Ear infection GERD (gastroesophageal reflux disease) Hiatal hernia High cholesterol History of blood transfusion History of chemotherapy History of sinus problem HTN (hypertension) Hx of radiation therapy Hyperlipidemia IBS (irritable bowel syndrome) Lupus Lupus anticoagulant positive Peptic ulcer Pleurisy Pulmonary embolism Shingles Vasovagal episode Vertigo Vision abnormalities Wears glasses for reading Surgical History Surgical History H/O abdominoplasty H/O bilateral mastectomy H/O right knee surgery per patient, had remodeled H/O tubal ligation H/O: hysterectomy History of ankle surgery left ankle reconstruction History of appendectomy History of carpal tunnel repair History of rhinoplasty History of tonsillectomy Hx of cholecystectomy Previous back surgery T10 filled with concrete Family History Family History Father Hypertension Mother Cerebrovascular accident Patient's mother is Other Arthritis Social History Social History Smoking packs per day: 0.5 Smoking cigarettes per day: 10.0 Years smoked: 35 Smoking pack-years: 17.50 Smoking status: Former smoker Tobacco type: e-cigarettes/vaping Second hand tobacco smoke exposure: No Smoking end date: 11/08/19 Alcohol intake: current Alcohol use details: Occasional Substance use: current Substance use type: marijuana Gender identity (if verbalized by the patient): Female Exam Narrative: GENERAL: Well-appearing, well-nourished, and in no acute distress. HEAD: Normocephalic, atraumatic. EYES: EOMI. EXTREMITIES: Normal range of motion. Mild edema about the right 4th finger with overlying redness. Normal radial pulses. Normal sensation. Ring has been removed SKIN: Warm, dry, no rash. NEURO: No focal deficits. Alert and orien
[2020-11-20] MEDS: ACETAMINOPHEN 500 MG TABLET 1000 MG PO (10:20)
[2020-11-20] MEDS: FAMOTIDINE 20 MG TABLET PO (10:21)
[2020-11-20] MEDS: TETANUS,DIPHTHERIA,AC PERTUSSIS ADULT (0.5 ML) BOOSTRIX IM (10:21)
[2020-11-20] MEDS: diphenhydrAMINE HCl CAP 25 MG CAPSULE PO (10:21)
== END 2020-11-20 10:56 | disposition home or self-care (01) ==
PROVIDERS: Emergency Provider Emergency Medicine; PCP Internal Medicine
DX: S60.464A Insect bite (nonvenomous) of right ring finger, initial encounter (principal); Z23 Encounter for immunization; Z87.891 Personal history of nicotine dependence; D64.9 Anemia, unspecified; F41.9 Anxiety disorder, unspecified; M19.90 Unspecified osteoarthritis, unspecified site; F32.9 Major depressive disorder, single episode, unspecified; K21.9 Gastro-esophageal reflux disease without esophagitis; E78.5 Hyperlipidemia, unspecified; I10 Essential (primary) hypertension; W57.XXXA Bitten or stung by nonvenomous insect and other nonvenomous arthropods, initial encounter
CPT/HCPCS: 90471; 90715; 96372; 99283; A9270; J1100

== ENCOUNTER 2021-04-13 22:38 | Emergency (ER) | payer OTHER, SELFPAY ==
--- NOTE | ~2021-04-13 | CT_ITS ---
EXAMINATION: CTA chest PE protocol DATE: 04/14/2021 06:06 INDICATION: Chest pain. COVID-19 positive. TECHNIQUE: Computed tomography angiography (CTA) of the chest was performed with 100 mL Omnipaque-350 intravenous contrast timed to evaluate the pulmonary arteries. Coronal maximum intensity projection 3D-reconstructions were created by the technologist. Automated exposure control and iterative reconst ruction technique were employed. The dose-length product was 638.03 mGy-cm. COMPARISON: Chest CT 06/03/2018 FINDINGS: There is mild emphysema. The lungs demonstrate mild atelectasis with a dependent predominan ce. No pleural effusion. The heart size is normal. No pericardial effusion. There is a small sliding hiatal hernia. There is no pulmonary embolus. There are bilateral breast implants. There is a chronic compression fracture of T10 with changes of vertebroplasty. IMPRESSION: 1. No pulmonary embolus. 2. Mild emphysema. 3. Small sliding hiatal hernia. Reviewed, dictated and finalized at location A. 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
[2021-04-14 02:05] VITALS: BP 117/77; PULSE 73; RESP 18; TEMP 36.6; O2SAT 100
[2021-04-14] MEDS: ALBUTEROL SULFATE (*SP) INHALER 2 PUFF INHALATION (04:47)
[2021-04-14 05:04] LABS: Basophils Percent Auto 0.2 % (0.2-1.2); Eosinophils Absolute Auto 0.1 K/mm3 (0-0.3); Eosinophils Percent Auto 0.8 % (0-4.4); Hematocrit 36.8 % (37.0-47.0); Hemoglobin 11.9 g/dL (12.0-15.0); Immature Granulocyte Absolute 0.03 K/mm3 (0.00-0.031); Immature Granulocyte Percent A 0.3 % (0-0.5); Lymphocytes Absolute Auto 2.14 K/mm3 (0.9-3.2); Lymphocytes Percent Auto 20.9 % (18.3-44.2); Mean Corpuscular HGB Conc 32.3 g/dl (32-36); Mean Corpuscular Hemoglobin 30.2 pg (26-34); Mean Corpuscular Volume 93.4 fl (80-100); Mean Platelet Volume 10.9 fl (7.4-10.4); Monocytes Absolute Auto 0.7 K/mm3 (0.1-0.6); Monocytes Percent Auto 7.2 % (2.6-8.5); Neutrophils Absolute Auto 7.2 K/mm3 (1.3-6.7); Neutrophils Percent Auto 70.6 % (45.5-73.1); Platelet Count Result 185 k/mm3 (150-375); Red Blood Count 3.94 M/mm3 (4.2-5.4); Red Cell Distribution Width 12.8 % (11.5-14.5); White Blood Count 10.2 K/mm3 (4.5-10.0)
[2021-04-14] MEDS: SODIUM CHLORIDE 0.9% IV 1,000 ML 999 ML IV CONT ×2 (05:15→07:18)
[2021-04-14 05:16] LABS: Alanine Aminotransferase 27 U/L (4-35); Albumin Level 4.4 g/dL (3.5-5.1); Alkaline Phosphatase 82 U/L (38-126); Anion Gap 7 mmol/L (8-16); Aspartate Amino Transferase 28 U/L (14-36); Bilirubin,Total 0.4 mg/dL (0.2-1.3); Blood Urea Nitrogen 25 mg/dL (7-17); Calcium 9.3 mg/dL (8.4-10.2); Carbon Dioxide 24 mmol/L (22-30); Chloride 109 mmol/L (98-107); Estimated CRCL calculation 46 ml/min; Estimated Glomerular Filt Rate 32; Glucose 98 mg/dL (65-110); INR 1.9; Lactic Acid Reflex 1.6 mmol/L (0.7-2.1); Lipase 116 U/L (23-300); Magnesium 1.9 mg/dL (1.6-2.3); Potassium 4.1 mmol/L (3.4-5.0); Prothrombin Time 21.2 Seconds (11.1-14.7); Sodium 140 mmol/L (137-145)
[2021-04-14] MEDS: MORPHINE SULFATE (*CRX) 4 MG/ML INJ IV PUSH (05:16)
[2021-04-14] MEDS: ONDANSETRON INJ 4 MG/2 ML VIAL IV PUSH (05:16)
[2021-04-14 05:17] LABS: Partial Thromboplastin Time 37.6 SECONDS (22.3-36.8)
[2021-04-14 05:27] LABS: NT Pro B Type Natriuretic Pept 40 pg/mL (5-100); Troponin I < 0.012 ng/mL (0.000-0.034)
--- NOTE | 2021-04-14 05:58 | ED.GENADULT ---
HPI - General Adult General Chief complaint: Back Pain/Injury Stated complaint: SOB, CP Time Seen by Provider: 04/14/21 04:19 History of Present Illness HPI narrative: Patient 50-year-old female presents to emergency department with chief complaint of chest pain and Covid positive. The patient reports she has history of multiple autoimmune diseases and has had pulmonary embolisms before in the past. Patient states she is on anticoagulation has not missed any doses of her anticoagulant. The patient states that several days ago she started having a headache then that has progressed to body aches and now is having pain in her chest. Patient states that she tested positive for COVID-19 last 24 hours reports that she was concerned because she of her history of PEs and the risk of pulmonary embolisms with COVID-19 Related Data Home Medications Medication Instructions Recorded Confirmed carvedilol 12.5 mg tablet 12.5 mg PO DAILY tablet 08/18/19 04/14/21 biotin 1 mg capsule 1 mg PO DAILY 10/04/19 04/14/21 cyclobenzaprine 10 mg tablet 10 mg PO .hs tablet 10/04/19 04/14/21 hydroxychloroquine 200 mg tablet 400 mg PO DAILY tablet 05/15/20 04/14/21 Allergies Allergy/AdvReac Type Severity Reaction Status Date / Time azithromycin Allergy Unknown stomach Verified 12/29/20 14:09 pain latex Allergy Unknown blisters Verified 12/29/20 14:09 nickel Allergy Unknown Turns skin Verified 12/29/20 14:09 Green NEOPRENE Allergy Mild BLACKEN Uncoded 12/29/20 14:09 SKIN Review of Systems Review of Systems: A 10 system review of systems was completed on the patient and is negative except for what is stated in the HPI. Nursing and ancillary documentation was reviewed. [facility] Past Medical History Medical History UNRULY positive Anemia Anxiety Arthritis Back pain Bilateral renal cysts Breast cancer, right Bronchitis Depression Dizziness Ear infection GERD (gastroesophageal reflux disease) Hiatal hernia High cholesterol History of blood transfusion History of chemotherapy History of sinus problem HTN (hypertension) Hx of radiation therapy Hyperlipidemia IBS (irritable bowel syndrome) Lupus Lupus anticoagulant positive Peptic ulcer Pleurisy Pulmonary embolism Shingles Vasovagal episode Vertigo Vision abnormalities Wears glasses for reading Surgical History Surgical History H/O abdominoplasty H/O bilateral mastectomy H/O right knee surgery per patient, had remodeled H/O tubal ligation H/O: hysterectomy History of ankle surgery left ankle reconstruction History of appendectomy History of carpal tunnel repair History of rhinoplasty History of tonsillectomy Hx of cholecystectomy Previous back surgery T10 filled with concrete Family History Family History Father Hypertension Mother Cerebrovascular accident Patient's mother is Other Arthritis Social History Social History Smoking packs per day: 0.5 Smoking cigarettes per day: 10.0 Years smoked: 35 Smoking pack-years: 17.50 Smoking status: Current some day smoker Tobacco type: e-cigarettes/vaping Second hand tobacco smoke exposure: No Smoking end date: 11/08/19 Alcohol intake: current Alcohol use details: Occasional Substance use: current Substance use type: marijuana Gender identity (if verbalized by the patient): Female Exam Narrative: GENERAL: Well-appearing, well-nourished, and in no acute distress. HEAD: Normocephalic, atraumatic. EYES: PERRLA and EOMI. ENT: Nares clear, no rhinorrhea or epistaxis. Mucous membranes moist. NECK: Supple. CHEST: Clear to auscultation. No respiratory distress. HEART: Regular rate and rhythm. No murmur heard.
--- NOTE | 2021-04-14 06:00 | ECG_ITS ---
Measurements Intervals [place] Rate: 51 P: 28 IA: 171 QRS: 9 QRSD: 101 T: 45 QT: 511 QTc: 473 Interpretive Statements SINUS BRADYCARDIA BASELINE WANDER- V2-V3 BORDERLINE ECG Electronically Signed On 04-14-2021 7:59:21 ASSISTANT FINANCIAL ACCOUNTANT by Roger Wang D.O.
[2021-04-14 09:05] VITALS: BP 123/76; PULSE 53; RESP 16; O2SAT 98
== END 2021-04-14 09:08 | disposition home or self-care (01) ==
PROVIDERS: Emergency Provider Emergency Medicine; PCP Internal Medicine
DX: U07.1 COVID-19 (principal); R07.89 Other chest pain; E86.0 Dehydration; I10 Essential (primary) hypertension; E78.00 Pure hypercholesterolemia, unspecified; D68.62 Lupus anticoagulant syndrome; M35.9 Systemic involvement of connective tissue, unspecified; K21.9 Gastro-esophageal reflux disease without esophagitis; K44.9 Diaphragmatic hernia without obstruction or gangrene; M19.90 Unspecified osteoarthritis, unspecified site; Z87.11 Personal history of peptic ulcer disease; Z86.711 Personal history of pulmonary embolism; Z85.3 Personal history of malignant neoplasm of breast; Z90.13 Acquired absence of bilateral breasts and nipples; Z92.21 Personal history of antineoplastic chemotherapy; Z92.3 Personal history of irradiation; F17.290 Nicotine dependence, other tobacco product, uncomplicated; Z79.01 Long term (current) use of anticoagulants; R00.1 Bradycardia, unspecified; J43.9 Emphysema, unspecified
CPT/HCPCS: 36415; 71275; 80053; 83605; 83690; 83735; 83880; 84484; 85025; 85610; 85730; 93005; 96361; 96374; 96375; 99284; A9270; J2270; J2405; J7030; Q9967

== ENCOUNTER 2021-06-30 09:33 | Outpatient (CLI) | payer OTHER, SELFPAY ==
--- NOTE | ~2021-06-30 | MR_ITS ---
EXAMINATION: MR lumbar spine wo con DATE: 06/30/2021 11:11 INDICATION: Low back pain, unspecified. TECHNIQUE: Magnetic resonance imaging (MRI) of the lumbar spine was performed without intravenous con trast. Sequences included sagittal T2-weighted FSE, sagittal T2-weighted FS FSE, sagittal T1-weighted FSE, and axial T2-weighted FSE. COMPARISON: Lumbar spine MRI 11/17/2016 FINDINGS: Bone alignment is normal. Vertebral body heights and intervertebral disc heights are normal . The distal spinal cord signal intensity is normal. The conus medullaris is at L1-L2. There are Tarl ov cysts at S1 and S2. The following disc levels are specifically discussed: L1-L2: The disc does not extend beyond the endplate margin. There is mild bilateral facet joint osteo arthritis. There is no neural foraminal stenosis. There is no central canal stenosis. L2-L3: The disc does not extend beyond the endplate margin. There is mild bilateral facet joint osteo arthritis. There is no neural foraminal stenosis. There is no central canal stenosis. L3-L4: The disc is mildly bulging. There is mild bilateral facet joint osteoarthritis. There is mild bilateral neural foraminal stenosis. There is no central canal stenosis. L4-L5: The disc is mildly bulging. There is severe bilateral facet joint osteoarthritis. There is mil d bilateral neural foraminal stenosis. There is no central canal stenosis. L5-S1: The disc is mildly bulging. There is moderate bilateral facet joint osteoarthritis. There is m ild right neural foraminal stenosis. There is mild central canal stenosis. IMPRESSION: 1. Mild lumbar spondylosis, stable from 11/17/2016. Reviewed, dictated and finalized at location A.
== END 2021-06-30 09:34 | disposition home or self-care (01) ==
LOC: ANHIMG 09:40
PROVIDERS: PCP Internal Medicine; Visit Provider Physician Assistant
DX: M47.896 Other spondylosis, lumbar region (principal)
CPT/HCPCS: 72148

== ENCOUNTER 2021-07-25 09:08 | Outpatient (CLI) | payer OTHER, SELFPAY ==
--- NOTE | 2021-07-25 11:15 | NEURO_ITS ---
Impression: # Complains of pain in both feet. History of chemotherapy. # Abnormal Nerve Conduction Study with decreased amplitude and polyphasic responses. # Clinical correlation recommended; Findings suggestive of axonal involvement. Nerve Conduction Studies Anti Sensory Summary Table Stim Site NR Peak (ms) P-T Amp (?V) Site1 Site2 Delta-P (ms) Dist (cm) Sher (m/s) Left Sup Fibular Anti Sensory (Ant Lat Mall) NO RESPONSE 14 cm NR 14 cm Ant Lat Mall 16.0 Right Sup Fibular Anti Sensory (Ant Lat Mall) NO RESPONSE 14 cm NR 14 cm Ant Lat Mall 16.0 Left Sural Anti Sensory (Lat Mall) NO RESPONSE Calf NR Calf Lat Mall 16.0 Site 2 NR Right Sural Anti Sensory (Lat Mall) NO RESPONSE Calf NR Calf Lat Mall 16.0 Motor Summary Table Stim Site NR Onset (ms) O-P Amp (mV) Site1 Site2 Delta-0 (ms) Dist (cm) Sher (m/s) Left Peroneal Motor (Vastus Med) Ankle 5.0 3.2 Popit Ankle 12.1 42.0 35 Popit 17.1 3.2 Right Peroneal Motor (Vastus Med) Ankle 4.8 2.0 Popit Ankle 10.0 40.0 40 Popit 14.8 1.3 Left Tibial Motor (Abd Marsh Brev) Ankle 5.3 0.7 Knee Ankle 10.4 43.0 41 Knee 15.7 0.2 Right Tibial Motor (Abd Marsh Brev) Ankle 5.1 1.1 Knee Ankle 11.3 42.0 37 Knee 16.4 0.4 F Wave Studies NR F-Lat (ms) L-R F-Lat (ms) Left Peroneal (Mrkrs) (EDB) 58.41 0.70 Right Peroneal (Mrkrs) (EDB) 57.71 0.70 Left Tibial (Mrkrs) (Abd Hallucis) 56.40 0.58 Right Tibial (Mrkrs) (Abd Hallucis) 55.81 0.58 EMG Side Muscle Nerve Root Ins Act Fibs Amp Dur Recrt Comment Right AntTibialis Dp Br Fibular L4-5 Nml Nml Nml Nml Nml Right Gastroc Tibial S1-2 Nml Nml Nml Nml Nml Right Fibularis Long Sup Br Fibular L5-S1 Nml Nml Nml Nml Nml Right Flex Dig Long Tibial L5-S2 Nml Nml Nml Nml Nml Right Ext Dig Brev Dp Br Fibular L5, S1 Nml Nml Nml Nml Nml Left AntTibialis Dp Br Fibular L4-5 Nml Nml Nml Nml Nml Left Gastroc Tibial S1-2 Nml Nml Nml Nml Nml Left Fibularis Long Sup Br Fibular L5-S1 Nml Nml Nml Nml Nml Left Flex Dig Long Tibial L5-S2 Nml Nml Nml Nml Nml Left Ext Dig Brev Dp Br Fibular L5, S1 Nml Nml Nml Nml Nml Right QuadratusFem QuadFemoris L4-5, S1 Nml Nml Nml Nml Nml Left QuadratusFem QuadFemoris L4-5, S1 Nml Nml Nml Nml Nml MTDD
== END 2021-07-25 09:09 | disposition home or self-care (01) ==
PROVIDERS: PCP Internal Medicine; Visit Provider Physician Assistant
DX: R20.2 Paresthesia of skin (principal); R94.131 Abnormal electromyogram [EMG]
CPT/HCPCS: 95886; 95910

== ENCOUNTER 2021-08-13 19:01 | Emergency (ER) | payer OTHER, SELFPAY ==
--- NOTE | ~2021-08-13 | XR_ITS ---
XR ankle RT min 3V 08/13/2021 19:35 Indication: Right ankle pain after fall Procedure: 4 views right ankle Comparison: 06/23/2016 Findings: No acute fracture, subluxation or dislocation. There are chronic avulsion fracture superior to the talus and navicular on the lateral view. Small degenerative calcaneal enthesophyte. Talar dom e is normal. Ankle mortise intact. Impression: 1: No acute fracture. Reviewed, dictated and finalized at location A. Impression: 1: No acute fracture.
[2021-08-13 19:05] VITALS: BP 154/106; PULSE 69; RESP 20; TEMP 36.7; O2SAT 100
--- NOTE | 2021-08-13 19:11 | PC.NURSE ---
Pt reports right sided ankle pain.
--- NOTE | 2021-08-13 19:32 | ED.FALL ---
HPI - Fall General Chief Complaint: Fall Stated Complaint: ankle injury Time Seen by Provider: 08/13/21 19:15 Source: patient History of Present Illness HPI Narrative: Patient presents with right ankle pain. Patient ports history of neuropathy has had multiple frequent falls and has various body aches but does want to be evaluated for her right ankle as she is having difficulty ambulating. She injured her ankle today around 1:00 she tripped over a tent stake that was sticking out of the ground which she caught her self with her hands not strike her head there is no loss of consciousness. She is on Xarelto denies any headache, acute focal numbness, focal weakness, nausea vomiting or changes in vision. Her ankle pain is achy, constant, primarily on the outside of her ankle worse with attempting to move her ankle. Related Data Home Medications Medication Instructions Recorded Confirmed carvedilol 12.5 mg tablet 12.5 mg PO DAILY 08/18/19 07/13/21 biotin 1 mg capsule 1 mg PO DAILY 10/04/19 07/13/21 cyclobenzaprine 10 mg tablet 10 mg PO .hs 10/04/19 07/13/21 hydroxychloroquine 200 mg tablet 400 mg PO DAILY 05/15/20 07/13/21 amlodipine 5 mg tablet 5 mg PO DAILY 06/13/21 07/13/21 gabapentin 300 mg capsule 300 mg PO QHS 06/13/21 07/13/21 Allergies Allergy/AdvReac Type Severity Reaction Status Date / Time azithromycin Allergy Unknown stomach Verified 07/13/21 14:28 pain latex Allergy Unknown blisters Verified 07/13/21 14:28 nickel Allergy Unknown Turns skin Verified 07/13/21 14:28 Green NEOPRENE Allergy Mild BLACKEN Uncoded 07/13/21 14:28 SKIN Review of Systems Review of Systems: CONSTITUTIONAL: Denies fever, chills, or sweats. EYES: Denies visual changes, redness, or discharge. ENT: Denies rhinorrhea, congestion, sore throat, or otalgia. CARDIOVASCULAR: Denies chest pain, palpitations, or edema. RESPIRATORY: Denies cough or dyspnea. GASTROINTESTINAL: Denies abdominal pain, nausea, vomiting, or diarrhea. GENITOURINARY: Denies dysuria or hematuria. SKIN: Denies rash or itching. MUSCULOSKELETAL: Denies back pain, joint pain, or myalgia. NEUROLOGIC: Denies headache, numbness, dizziness, or weakness. PSYCHIATRIC: Denies anxiety or depression. All systems reviewed & are unremarkable except as noted in HPI and below PMFSH Past Medical History Medical History UNRULY positive Anemia Anxiety Arthritis Back pain Bilateral renal cysts Breast cancer, right Bronchitis Depression Dizziness Ear infection GERD (gastroesophageal reflux disease) Hiatal hernia High cholesterol History of blood transfusion History of chemotherapy History of sinus problem HTN (hypertension) Hx of radiation therapy Hyperlipidemia IBS (irritable bowel syndrome) Lupus Lupus anticoagulant positive Peptic ulcer Pleurisy Pulmonary embolism Shingles Vasovagal episode Vertigo Vision abnormalities Wears glasses for reading Surgical History Surgical History H/O abdominoplasty H/O bilateral mastectomy H/O right knee surgery per patient, had remodeled H/O tubal ligation H/O: hysterectomy History of ankle surgery left ankle reconstruction History of appendectomy History of carpal tunnel repair History of rhinoplasty History of tonsillectomy Hx of cholecystectomy Previous back surgery T10 filled with concrete Family History Family History Father Hypertension Mother Cerebrovascular accident Patient's mother is Other Arthritis Social History Social History Smoking packs per day: 0.5 Smoking cigarettes per day: 10.0 Years smoked: 35 Smoking pack-years: 17.50 Smoking status: Current every day smoker Tobacco type: e-cigarettes/vaping Second hand tobacco smoke exposure: No Smok
[2021-08-13 20:26] VITALS: BP 122/58; PULSE 77; RESP 16; O2SAT 98
== END 2021-08-13 20:27 | disposition home or self-care (01) ==
PROVIDERS: Emergency Provider Emergency Medicine; PCP Internal Medicine
DX: S93.401A Sprain of unspecified ligament of right ankle, initial encounter (principal); E78.00 Pure hypercholesterolemia, unspecified; I10 Essential (primary) hypertension; K58.9 Irritable bowel syndrome, unspecified; M19.90 Unspecified osteoarthritis, unspecified site; K21.9 Gastro-esophageal reflux disease without esophagitis; D68.62 Lupus anticoagulant syndrome; Z90.13 Acquired absence of bilateral breasts and nipples; Z85.3 Personal history of malignant neoplasm of breast; Z92.21 Personal history of antineoplastic chemotherapy; Z92.3 Personal history of irradiation; Z86.2 Personal history of diseases of the blood and blood-forming organs and certain disorders involving the immune mechanism; Z86.711 Personal history of pulmonary embolism; Z87.11 Personal history of peptic ulcer disease; Z79.01 Long term (current) use of anticoagulants; W18.09XA Striking against other object with subsequent fall, initial encounter
CPT/HCPCS: 73610; 99283

== ENCOUNTER 2022-03-26 18:54 | Emergency (ER) | payer SELFPAY ==
[2022-03-26 19:01] VITALS: BP 106/64; PULSE 82; RESP 20; TEMP 36.2; O2SAT 97
--- NOTE | 2022-03-26 19:15 | ECG_ITS ---
Measurements Intervals [place] Rate: 64 P: 50 WA: 163 QRS: 53 QRSD: 101 T: 72 QT: 460 QTc: 478 Interpretive Statements SINUS RHYTHM BORDERLINE T WAVE ABNORMALITY- ANTERIOR LEADS BORDERLINE ECG COMPARED TO ECG 04/14/2021 07:09:44 SINUS RHYTHM NOW PRESENT Electronically Signed On 03-26-2022 20:53:36 [employer]CHNOLOGY INTERNSHIP by Roger Wang D.O.
[2022-03-26 19:37] VITALS: BP 132/81; PULSE 74; RESP 20; O2SAT 98
--- NOTE | 2022-03-26 19:47 | PC.NURSE ---
Pt reports history of vestibular migraines. She is scheduled to see her neurologist in May to r/o autonomic disorder per pt. Pt states she was at dinner tonight when she had sudden onset dizziness, tunnel vision, and felt like she was going to pass out. States she has had multiple similar episodes, last one was on . States she had a severe episode in 2019 and was thought to have had a stroke but did not have a clot or a bleed. Pt reports feeling much better now that she's laying down. She is alert and oriented x4, speech is clear, and pupils are PEARRL.
[2022-03-26 19:51] LABS: Basophils Absolute Auto 0.1 K/mm3 (0.0-0.1); Basophils Percent Auto 0.6 % (0.2-1.2); Eosinophils Absolute Auto 0.2 K/mm3 (0-0.3); Hematocrit 37.1 % (37.0-47.0); Immature Granulocyte Absolute 0.03 K/mm3 (0.00-0.031); Immature Granulocyte Percent A 0.3 % (0-0.5); Lymphocytes Absolute Auto 3.86 K/mm3 (0.9-3.2); Lymphocytes Percent Auto 35.6 % (18.3-44.2); Mean Corpuscular HGB Conc 32.3 g/dl (32-36); Mean Corpuscular Volume 92.8 fl (80-100); Monocytes Absolute Auto 0.7 K/mm3 (0.1-0.6); Monocytes Percent Auto 6.8 % (2.6-8.5); Neutrophils Absolute Auto 5.9 K/mm3 (1.3-6.7); Neutrophils Percent Auto 54.7 % (45.5-73.1); Platelet Count Result 279 k/mm3 (150-375); White Blood Count 10.8 K/mm3 (4.5-10.0)
[2022-03-26 19:59] LABS: Add Urine Microscopic? YES; Appearance Urine Cloudy (Clear); Bilirubin Urine 1+ (Negative); Blood Urine Negative (Negative); Color Urine Yellow (Yellow); Glucose Urine UA Negative (Negative); Ketones Urine Negative (Negative); Leukocyte Esterase Ur Negative LEU/UL (Negative); Nitrate Urine Negative (Negative); Protein Urine 2+ mg/dL (Negative); Specific Grav Ur >= 1.030 (1.001-1.035); Urobilinogen Urine 0.2 mg/dL (<2.0); pH Urine 5.5 (5.0-9.0)
[2022-03-26 20:04] LABS: Mucus Urine Heavy /lpf; Squamous Epithelial Cell Urine Many /hpf (Few); WBC Urine 0-3 /hpf
[2022-03-26 20:06] VITALS: BP 120/77; PULSE 64
[2022-03-26 20:06] LABS: Alanine Aminotransferase 29 U/L (6-35); Albumin Level 4.3 g/dL (3.5-5.1); Alkaline Phosphatase 108 U/L (38-126); Anion Gap 7 mmol/L (8-16); Aspartate Amino Transferase 24 U/L (14-36); Bilirubin,Total 0.4 mg/dL (0.2-1.3); Blood Urea Nitrogen 16 mg/dL (7-17); Calcium 9.1 mg/dL (8.4-10.2); Carbon Dioxide 26 mmol/L (22-30); Chloride 106 mmol/L (98-107); Estimated CRCL calculation 77 ml/min; Estimated Glomerular Filt Rate 58; Glucose 129 mg/dL (65-110); Potassium 3.1 mmol/L (3.4-5.0); Sodium 139 mmol/L (137-145)
[2022-03-26 20:07] VITALS: BP 137/90; PULSE 80
[2022-03-26 20:10] VITALS: BP 129/90; PULSE 72
[2022-03-26] MEDS: LORazepam (*CRX) 0.5 MG TABLET PO (20:12)
--- NOTE | 2022-03-26 20:38 | ED.GENADULT ---
HPI - General Adult General Chief complaint: Unspecified Stated complaint: NEURO C/O MULTI SYMPTOMS Time Seen by Provider: 03/26/22 19:13 Source: patient Mode of arrival: ambulatory Limitations: no limitations History of Present Illness HPI narrative: 51-year-old with a history of hypertension, hyperlipidemia ,chronic pain, GERD, lupus, Sjogren's ,anxiety who presents to the ER with diffuse weakness, diaphoresis, nausea, jaw pain, and presyncope that occurred while she was eating dinner this evening. She has had episodes of this before, but they usually do not last this long and have not occurred in the past year. Denies any chest pain, palpitations, headache, abdominal pain. She was having some shortness of breath but states that this is related to anxiety during the episode. Patient also states that she had a loop monitor which was removed few weeks ago all it showed was PVCs. She does follow with the neurologist and waistband setter lockstitch at [facility]. She presently has no chest pain or chest discomfort. Related Data Home Medications Medication Instructions Recorded Confirmed biotin 1 mg capsule 1 mg PO DAILY 10/04/19 01/18/22 cyclobenzaprine 10 mg tablet 10 mg PO .hs 10/04/19 01/18/22 amlodipine 5 mg tablet 5 mg PO DAILY 06/13/21 01/18/22 pbutikzhro-jybnric-gjoujxgf 50 1 tablet PO TID PRN 08/30/21 01/18/22 mg-325 mg-40 mg tablet carvedilol 12.5 mg tablet 12.5 mg PO BID 08/30/21 01/18/22 gabapentin 300 mg capsule 300 mg PO BID 08/30/21 01/18/22 hydroxychloroquine 200 mg tablet 400 mg PO DAILY 08/30/21 01/18/22 nortriptyline 10 mg capsule 10 mg PO QHS 01/18/22 01/18/22 Allergies Allergy/AdvReac Type Severity Reaction Status Date / Time azithromycin Allergy Unknown stomach Verified 01/18/22 14:04 pain latex Allergy Unknown blisters Verified 01/18/22 14:04 nickel Allergy Unknown Turns skin Verified 01/18/22 14:04 Green NEOPRENE Allergy Mild BLACKEN Uncoded 01/18/22 14:04 SKIN Review of Systems Review of Systems: All systems reviewed & are unremarkable except as noted in HPI and below Constitutional: Constitutional: Reports no additional constitutional complaints Eyes: Eyes: Reports no additional eye complaints ENT: Reports system reviewed and no additional complaints, except as documented Cardiovascular: Cardiovascular: Reports as per HPI Respiratory: Respiratory: Reports no additional respiratory complaints Gastrointestinal: Gastrointestinal: Reports no additional gastrointestinal complaints Musculoskeletal: Musculoskeletal: Reports no additional musculoskeletal complaints Neurologic: Reports as per HPI Psychiatric: Psychiatric: Reports no additional psychiatric complaints PMFSH Past Medical History Medical History UNRULY positive Anemia Anxiety Arthritis Back pain Bilateral renal cysts Breast cancer, right Bronchitis Depression Dizziness Ear infection GERD (gastroesophageal reflux disease) Hiatal hernia High cholesterol History of blood transfusion History of chemotherapy History of sinus problem HTN (hypertension) Hx of radiation therapy Hyperlipidemia IBS (irritable bowel syndrome) Lupus Lupus anticoagulant positive Peptic ulcer Pleurisy Pulmonary embolism Shingles Vasovagal episode Vertigo Vision abnormalities Wears glasses for reading Surgical History Surgical History H/O abdominoplasty H/O bilateral mastectomy H/O right knee surgery per patient, had remodeled H/O tubal ligation H/O: hysterectomy History of ankle surgery left ankle reconstruction History of appendectomy History of carpal tunnel repair History of rhinoplasty History of tonsillectomy Hx of cholecystectomy Previous back surgery T10 filled with concrete Family History Family History Father Hypertension Mother Cerebrovas
[2022-03-26 20:49] VITALS: BP 129/77; PULSE 65; RESP 20; O2SAT 99
== END 2022-03-26 20:58 | disposition home or self-care (01) ==
PROVIDERS: Emergency Provider Family Medicine; PCP Internal Medicine
DX: R53.1 Weakness (principal); F41.9 Anxiety disorder, unspecified; F17.210 Nicotine dependence, cigarettes, uncomplicated; D64.9 Anemia, unspecified; M19.90 Unspecified osteoarthritis, unspecified site; K21.9 Gastro-esophageal reflux disease without esophagitis; Z85.3 Personal history of malignant neoplasm of breast
CPT/HCPCS: 36415; 80053; 81001; 85025; 93005; 99283; A9270

== ENCOUNTER 2022-11-26 00:35 | Day surgery (SDC) | payer BC, SELFPAY ==
[2022-09-25 13:41] VITALS: BMI 36.2
--- NOTE | 2022-09-30 11:08 | PC.NURSE ---
Dr. Forbes with anesthesia informed that pt has not been on meds. since June due to cost. He wants pt to be canceled for now- until she has been seen by her providers and back on her medications. Spoke with George Lopez Rn on 09/26 and 09/27 regarding this also. Called pt today and George from Dr. Vanegas's office had called her and set-up appt. to get restarted on meds and that he did not want her to have the screening colonoscopy until she is back on meds. for at least 30 days. pt canceled and will call office to get resched. once back on meds and okay per Dr. Vanegas.
--- NOTE | 2022-09-30 11:13 | PC.NURSE ---
When speaking with pt concerning her meds. we did go over options to help get her meds. at reduced cost and switching to similar meds that have better coverage. I told her, her PCP and resawyer should be able to assist her with this.
[2022-11-14 15:15] VITALS: BMI 36.2
--- NOTE | 2022-11-25 09:28 | WPDANESEPPF ---
Anes - Initial Pre Proc Eval Procedure: Operation Date: 11/26/22 09:00 Proposed Procedures p Screening Colonoscopy - Rakesh Rothman MD Date/Time: 11/25/22 09:28 Surgeon: Rakesh Rothman MD Pre Op Diagnosis: neoplasm screening Patient Data Age: 52 Gender: F Height: 1.75 m Weight: 111.25 kg Allergies Allergy/AdvReac Type Severity Reaction Status Date / Time azithromycin Allergy Severe stomach Verified 11/26/22 07:44 pain latex Allergy Intermediate blisters Verified 11/26/22 07:44 nickel Allergy Intermediate Turns skin Verified 11/26/22 07:44 Green NEOPRENE Allergy Severe BLACKEN Uncoded 11/26/22 07:44 SKIN Home Medications Medication Instructions Recorded Confirmed Type cyclobenzaprine 10 mg tablet 10 mg PO .hs 10/04/19 11/26/22 History amlodipine 5 mg tablet 5 mg PO DAILY 06/13/21 11/26/22 History hydrocodone 10 mg-acetaminophen 1 tablet PO Q12H PRN pain #30 tabs 06/13/21 11/26/22 Rx 325 mg tablet gabapentin 300 mg capsule 300 mg PO BID 08/30/21 11/26/22 History hydroxychloroquine 200 mg tablet 400 mg PO DAILY 08/30/21 11/26/22 History nortriptyline 10 mg capsule 10 mg PO QHS 01/18/22 11/26/22 History losartan 100 mg tablet 100 mg PO DAILY #90 tabs 05/31/22 11/26/22 Rx rivaroxaban 20 mg tablet (Xarelto) 20 mg PO DAILY #90 tabs 05/31/22 11/26/22 Rx atorvastatin 40 mg tablet 40 mg PO DAILY #90 tabs 07/13/22 11/26/22 Rx alprazolam 0.25 mg tablet 0.125 mg PO BID PRN anxiety 09/25/22 11/26/22 History carvedilol 25 mg tablet 12.5 mg PO BID 09/25/22 11/26/22 History omeprazole 40 mg capsule,delayed 40 mg PO HS 09/25/22 11/26/22 History release Patient hx anesthesia problems: none Family hx anesthesia problems: none Results Review: All pre-operative results and documents have been reviewed as part of the pre-operative evaluation. [facility] Past Medical History Medical History (Updated 11/25/22 @ 09:31 by Ryan Waters DO) UNRULY positive Anemia Anxiety Aortic arch aneurysm Arthritis Autoimmune disease Back pain Bilateral renal cysts Breast cancer, right Bronchitis CVA (cerebral vascular accident) Depression Dizziness Ear infection GERD (gastroesophageal reflux disease) Hiatal hernia High cholesterol History of blood transfusion History of chemotherapy History of sinus problem HTN (hypertension) Hx of radiation therapy Hyperlipidemia IBS (irritable bowel syndrome) Lupus Lupus anticoagulant positive Peptic ulcer Pleurisy Pulmonary embolism Seizure Shingles Vasovagal episode Vertigo Vision abnormalities Wears glasses for reading Surgical History Surgical History H/O abdominoplasty H/O bilateral mastectomy H/O right knee surgery per patient, had remodeled H/O tubal ligation H/O: hysterectomy History of ankle surgery left ankle reconstruction History of appendectomy History of carpal tunnel repair History of rhinoplasty History of tonsillectomy Hx of cholecystectomy Previous back surgery T10 filled with concrete Family History Family History Father Hypertension Mother Cerebrovascular accident Patient's mother is Other Arthritis Social History Social History Smoking packs per day: 0.5 Smoking cigarettes per day: 10.0 Years smoked: 40 Smoking pack-years: 20.00 Smoking status: Former smoker Tobacco type: cigarettes Second hand tobacco smoke exposure: No Smoking end date: 11/08/19 Alcohol intake: current Alcohol use details: Occasional Substance use: current Substance use type: marijuana Other substance usage details: MEDICAL CARD- SMOKES MOST NIGHTS BEFORE BED- OCC. EDIBLE DURING DAY Lack of Transportation: No Lack of Food: Never True Current Housing: I Have Housing Concerned About Future Housing: No Difficulty Paying Gas
[2022-11-26 07:35] VITALS: BP 183/114; PULSE 79; RESP 18; TEMP 35.6; O2SAT 98; BMI 36.3
[2022-11-26] MEDS: LACTATED RINGERS 1,000 ML 150 ML IV CONT (08:01)
--- NOTE | 2022-11-26 08:28 | PM.HPGS ---
History of Present Illness History of Present Illness Consent: Risks, benefits, and alternatives have been discussed and questions answered. Patient agrees to proceed with procedure. Chief complaint: neoplasm screening Narrative: Allyssa Monroy is a 52 year old female Presents for screening colonoscopy. Patient's current weight appetite and bowel movements are normal. Patient denies abdominal pain. She has had no bleeding. Family history is significant his father had colon polyps. She states an uncle may have had colon cancer. Patient had a benign hyperplastic polyp in 2007. She herself has been treated for breast cancer. Patient presents today for surveillance screening colonoscopy. Review of Systems Review of Systems: Review of systems noncontributory. [facility] Past Medical History Medical History (Updated 11/25/22 @ 09:31 by Ryan Waters DO) UNRULY positive Anemia Anxiety Aortic arch aneurysm Arthritis Autoimmune disease Back pain Bilateral renal cysts Breast cancer, right Bronchitis CVA (cerebral vascular accident) Depression Dizziness Ear infection GERD (gastroesophageal reflux disease) Hiatal hernia High cholesterol History of blood transfusion History of chemotherapy History of sinus problem HTN (hypertension) Hx of radiation therapy Hyperlipidemia IBS (irritable bowel syndrome) Lupus Lupus anticoagulant positive Peptic ulcer Pleurisy Pulmonary embolism Seizure Shingles Vasovagal episode Vertigo Vision abnormalities Wears glasses for reading Surgical History Surgical History H/O abdominoplasty H/O bilateral mastectomy H/O right knee surgery per patient, had remodeled H/O tubal ligation H/O: hysterectomy History of ankle surgery left ankle reconstruction History of appendectomy History of carpal tunnel repair History of rhinoplasty History of tonsillectomy Hx of cholecystectomy Previous back surgery T10 filled with concrete Family History Family History Father Hypertension Mother Cerebrovascular accident Patient's mother is Other Arthritis Social History Social History Smoking packs per day: 0.5 Smoking cigarettes per day: 10.0 Years smoked: 40 Smoking pack-years: 20.00 Smoking status: Former smoker Tobacco type: cigarettes Second hand tobacco smoke exposure: No Smoking end date: 11/08/19 Alcohol intake: current Alcohol use details: Occasional Substance use: current Substance use type: marijuana Other substance usage details: MEDICAL CARD- SMOKES MOST NIGHTS BEFORE BED- OCC. EDIBLE DURING DAY Lack of Transportation: No Lack of Food: Never True Current Housing: I Have Housing Concerned About Future Housing: No Difficulty Paying Gas/Electric Bills: No Difficulty Paying for Meds: YES Currently Unemployed: No Education: Associate Degree Difficulty w/ Childcare or Family Care: No Living arrangements: alone Gender identity (if verbalized by the patient): Female Spiritual care concerns: No Meds Home Medications and Allergies Home Medications Medication Instructions Recorded Confirmed Type cyclobenzaprine 10 mg tablet 10 mg PO .hs 10/04/19 11/26/22 History amlodipine 5 mg tablet 5 mg PO DAILY 06/13/21 11/26/22 History hydrocodone 10 mg-acetaminophen 1 tablet PO Q12H PRN pain #30 tabs 06/13/21 11/26/22 Rx 325 mg tablet gabapentin 300 mg capsule 300 mg PO BID 08/30/21 11/26/22 History hydroxychloroquine 200 mg tablet 400 mg PO DAILY 08/30/21 11/26/22 History nortriptyline 10 mg capsule 10 mg PO QHS 01/18/22 11/26/22 History losartan 100 mg tablet 100 mg PO DAILY #90 tabs 05/31/22 11/26/22 Rx rivaroxaban 20 mg tablet (Xarelto) 20 mg PO DAILY #90 tabs 05/31/22 11/26/22 Rx atorvastatin 40 mg tablet 40 mg PO DAILY #90 tabs
[2022-11-26 08:35] VITALS: BP 150/103
[2022-11-26 09:41] VITALS: BP 154/82; PULSE 71; RESP 22; O2SAT 98
[2022-11-26 09:51] VITALS: BP 172/99; PULSE 63; RESP 16; O2SAT 100
[2022-11-26 10:01] VITALS: BP 180/98; PULSE 60; RESP 16; O2SAT 100
== END 2022-11-26 10:04 | disposition home or self-care (01) ==
PROVIDERS: PCP Internal Medicine; Visit Provider Internal Medicine Gastroenterology
PROC: 0DJD8ZZ Inspection of Lower Intestinal Tract, Via Natural or Artificial Opening Endoscopic (ICD-10-PCS; CPT 45378; principal; 2022-11-26 09:00)
DX: Z12.11 Encounter for screening for malignant neoplasm of colon (principal); D12.4 Benign neoplasm of descending colon; K63.5 Polyp of colon; K57.30 Diverticulosis of large intestine without perforation or abscess without bleeding; K64.8 Other hemorrhoids; Z83.71 Family history of colonic polyps; I10 Essential (primary) hypertension; E78.00 Pure hypercholesterolemia, unspecified; M32.9 Systemic lupus erythematosus, unspecified; D64.9 Anemia, unspecified; F41.9 Anxiety disorder, unspecified; F32.A Depression, unspecified; K21.9 Gastro-esophageal reflux disease without esophagitis; Z92.21 Personal history of antineoplastic chemotherapy; Z92.3 Personal history of irradiation; Z86.711 Personal history of pulmonary embolism; Z85.3 Personal history of malignant neoplasm of breast; Z86.73 Personal history of transient ischemic attack (TIA), and cerebral infarction without residual deficits; F12.90 Cannabis use, unspecified, uncomplicated; Z87.891 Personal history of nicotine dependence; E66.9 Obesity, unspecified; Z68.36 Body mass index [BMI] 36.0-36.9, adult; Z79.01 Long term (current) use of anticoagulants
CPT/HCPCS: 45385; 88305; J2704; J7120